=== PATIENT | female | born 1975 | race African-American/Black ===

== ENCOUNTER 2023-03-20 10:18 | Emergency (ER) | payer OTHER ==
[2023-03-20 10:58] VITALS: BP 139/77; PULSE 96; RESP 16; TEMP 99; BMI 34.4
[2023-03-20 11:01] LABS: HEMATOCRIT 37.9 % (32.4-45.2); HEMOGLOBIN 12.7 G/dL (10.7-15.3); MCH 28.9 pg (25.7-33.7); MCHC 33.4 g/dl (32.0-36.0); MEAN CELL VOLUME 86.7 fl (80-96); MEAN PLT VOLUME 7.8 fl (7.5-11.1); PLATELET COUNT 249.7 10^3/uL (134-434); RBC 4.37 10^6/uL (3.60-5.2); RDW 14.9 % (11.6-15.6); WHITE BLOOD COUNT 6.4 10^3/uL (4.0-10.8)
[2023-03-20 11:19] LABS: ALBUMIN 4.2 g/dl (3.4-5.0); BILIRUBIN,TOTAL 0.3 mg/dl (0.2-1); BLOOD UREA NITROGEN 11.2 mg/dl (7-18); CALCIUM 8.7 mg/dl (8.5-10.1); CREATININE 1.1 mg/dl (0.6-1.3); POTASSIUM 3.7 mmol/L (3.5-5.1); SGOT/AST 12.9 U/L (15-37); SGPT/ALT 29.7 U/L (7-52); TOT PROT 7.3 g/dl (6.4-8.2)
[2023-03-20 11:33] LABS: PLATELET ESTIMATE ADEQUATE
== END 2023-03-20 13:32 | disposition home or self-care (01) ==
LOC: FER 10:18
DX: R22.33 Localized swelling, mass and lump, upper limb, bilateral (principal)
CPT/HCPCS: 36415; 80053; 85027; 93971; 99284-25